=== PATIENT | female | born 1990 | race Caucasian/White ===

== ENCOUNTER 2018-11-20 10:35 | Emergency (ER) | payer SELFPAY ==
[2018-11-20 11:04] VITALS: BP 132/68
== END 2018-11-20 11:30 | disposition left against medical advice (07) ==
LOC: ED 10:35
DX: R19.7 Diarrhea, unspecified (principal); R11.10 Vomiting, unspecified; Z53.21 Procedure and treatment not carried out due to patient leaving prior to being seen by health care provider